=== PATIENT | male | born 1980 | race Two or more races ===

== ENCOUNTER 2023-04-07 22:15 | Emergency (ER) | payer SELFPAY ==
[~2023-04-07] VITALS: Ht 172.7 cm; Wt 104.0 kg
[2023-04-07] MEDS ORDERED: diphenhdrAMINE HCL 50 MG/1 ML VL IV ONE (22:45)
[2023-04-07] MEDS ORDERED: methylPREDNISolone SOD SUCC 125 MG/2 ML VL IV ONE (22:45)
[2023-04-08] MEDS ORDERED: FAMOTIDINE (10MG/ML) 2ML VL IV ONE (01:30)
[2023-04-08] MEDS ORDERED: FAMO20TA10 PO (01:37)
[2023-04-08] MEDS ORDERED: CETI10CA PO (01:37)
[2023-04-08] MEDS ORDERED: PRED20TA2 PO (01:37)
[2023-04-08 02:00] VITALS: BP 116/79; PULSE 87; RESP 15; TEMP 98; O2SAT 95
== END 2023-04-08 02:20 | disposition home or self-care (01) ==
LOC: ER 22:15
DX: T78.3XXA Angioneurotic edema, initial encounter (principal); Z98.890 Other specified postprocedural states; Y92.89 Other specified places as the place of occurrence of the external cause
CPT/HCPCS: 96374; 96375; 99284; J1200; J2930; J3490